=== PATIENT | female | born 1990 | race Two or more races ===

== ENCOUNTER 2022-06-05 02:19 | Emergency (ER) | payer OTHER ==
[~2022-06-05] VITALS: Ht 165.1 cm; Wt 73.5 kg
--- NOTE | 2022-06-05 02:34 | NUR ---
PATIENT BIBRA [id number] FROM [facility] WALK C/O ABD PAIN X 2 HRS. PATIENT IS A/O X 4, RR EVEN AND UNLABORED NO SOB NOTED. PATIENT IS AFEBRILE, VSS. PATIENT TAKEN TO ER BED 04. PATIENT CONNECTED TO MONITORS AND POX.
[2022-06-05] MEDS ORDERED: ONDANSETRON HCL/PF 4 MG/2 ML VIAL ONE ×2 (03:14→10:09)
[2022-06-05] MEDS ORDERED: MORPHINE SULFATE INJ 4 MG/ML DISP.SYRIN ONE (03:14)
[2022-06-05] MEDS ORDERED: DIATR MEGLU/DIATRIZOATE SODIUM 120 ML BOTTLE (GASTROGRAPHIN) ONE (03:24)
--- NOTE | 2022-06-05 03:27 | NUR ---
BLOOD WORK COLLECTED SENT TO LAB
--- NOTE | 2022-06-05 03:28 | NUR ---
PATIENT NOT ABLE TO PROVIDE URINE AT THIS TIME
[2022-06-05] MEDS: ONDANSETRON HCL/PF 4 MG/2 ML VIAL IVP ONE (03:29)
[2022-06-05] MEDS: IV NS 0.9% 1,000 ML BAG IV ONE (03:29)
[2022-06-05] MEDS: MORPHINE SULFATE INJ 2 MG/ML DISP.SYRIN IV ONE (03:29)
[2022-06-05] MEDS ORDERED: HYDROMORPHONE 1 MG/1 ML DISP.SYRIN ONE ×3 (03:32→10:09)
[2022-06-05] MEDS: HYDROMORPHONE 1 MG/1 ML DISP.SYRIN IV ONE ×3 (03:35→10:08)
[2022-06-05 03:57] LABS: BASOPHILS % (AUTO) 0.2 % (0.0-2.0); EOSINOPHILS % (AUTO) 0.3 % (0.0-6.0); HEMATOCRIT 43 % (33-45); HEMOGLOBIN 13.3 g/dL (11.5-14.8); LYMPHOCYTES % (AUTO) 10.7 % (20.0-44.0); MEAN CORPUSCULAR HGB CONC 31 g/dl (31.0-36.0); MEAN CORPUSCULAR VOLUME 87 fL (82-100); MONOCYTES # (AUTO) 0.5 K/uL (0.1-1.30); MONOCYTES % (AUTO) 5.1 % (2.0-12.0); NEUTROPHILS # (AUTO) 8.1 K/uL (1.8-8.9); NEUTROPHILS % (AUTO) 83.7 % (43.0-81.0); PLATELET COUNT (AUTO) 287 K/uL (150-450); RED BLOOD CELL COUNT(AUTO) 4.91 MIL/uL (4.0-5.2); WHITE BLOOD COUNT (AUTO) 9.6 K/uL (4.3-11.0)
[2022-06-05 03:58] LABS: CALCIUM, SERUM 9.4 mg/dL (8.5-10.1)
[2022-06-05 04:03] LABS: ALBUMIN 4.4 g/dL (3.4-5.0); BILIRUBIN,DIRECT 0.2 mg/dL (0.0-0.2); BILIRUBIN,TOTAL 0.8 mg/dL (0.2-1.0); TOTAL PROTEIN, SERUM 8.4 g/dL (6.4-8.2)
--- NOTE | 2022-06-05 05:43 | NUR ---
DR. SMITH ON THE PHONE WITH DR. DALY
--- NOTE | 2022-06-05 06:07 | NUR ---
CONTACTED SHIRLENE FLORENCE
--- NOTE | 2022-06-05 06:11 | NUR ---
DR. GRACE FLORENCE EPRP ON THE LINE WITH DR. CARY
--- NOTE | 2022-06-05 07:43 | NUR ---
REPOSITIONED PT FOR COMFORT BROUGHT WARM BLANKET
--- NOTE | 2022-06-05 08:24 | NUR ---
CALLED [facility] . DR. COKER IN CURRENTLY ON CASE AWAITING BED ASSIGNMENT PER YOLANDA.
--- NOTE | 2022-06-05 08:57 | NUR ---
MD SMITH AT BEDSIDE, ASSESSMENT PERFORMED = PT STABLE TO TRANSFER TO [facility]
--- NOTE | 2022-06-05 09:37 | NUR ---
BRITTNEY FROM [facility] CALLED PT ACCEPTED TO [facility] UNDER DR. FAIRBANKS PLEASE CALL [phone] PRN TRANSPORT ETA [phone]
[2022-06-05] MEDS: ONDANSETRON HCL/PF 4 MG/2 ML VIAL IV ONE (10:08)
[2022-06-05 10:59] VITALS: BP 112/66
== END 2022-06-05 11:00 | disposition short-term general hospital (02) ==
LOC: ER 02:46
DX: K46.0 Unspecified abdominal hernia with obstruction, without gangrene (principal); Z90.49 Acquired absence of other specified parts of digestive tract; Z98.84 Bariatric surgery status; Z20.822 Contact with and (suspected) exposure to COVID-19
CPT/HCPCS: 99291; 74176; 96374; 96375; 96361; 87426; 96376; 85025; 80048; 83605; 83690; 80076; 36415; 87081; J2270; J2405 ×2; J1170 ×3; C9803; Q9963